=== PATIENT | female | born 1995 | race Caucasian/White ===

== ENCOUNTER 2020-09-03 15:56 | Emergency (ER) | payer OTHER ==
[2020-09-03 16:05] VITALS: BP 99/62; PULSE 78; TEMP 98.1; BMI 23.8
[2020-09-03] MEDS ORDERED: LACTATED RINGERS SOLUTION 1000 ML INFUS.BAG IV ONE ×2 (16:32→18:39)
[2020-09-03 18:09] LABS: BASO % 0.3 % (0-2.0); EOS % 1.8 % (0-4.5); HEMATOCRIT 33.2 % (32.4-45.2); HEMOGLOBIN 11.2 GM/dL (10.7-15.3); MCH 29.5 pg (25.7-33.7); MCHC 33.7 g/dl (32.0-36.0); MEAN CELL VOLUME 87.5 fl (80-96); MEAN PLT VOLUME 7.3 fl (7.5-11.1); MONO % 5.2 % (3.8-10.2); NEUT % 76.7 % (42.8-82.8); PLATELET COUNT 263 K/MM3 (134-434); RBC 3.79 M/mm3 (3.60-5.2); RDW 13.2 % (11.6-15.6)
[2020-09-03 18:15] LABS: EPI CELLS 8 /uL (0-25.1); HYALINE CASTS 0 /uL (0-3.1); URINE APPEARANCE CLEAR; URINE BACTERIA 214 /uL (0-1359); URINE BILIRUBIN NEGATIVE (NEGATIVE); URINE COLOR YELLOW; URINE GLUCOSE (UA) NEGATIVE (NEGATIVE); URINE KETONE 1+ (NEGATIVE); URINE LEUK ESTERASE NEGATIVE (NEGATIVE); URINE NITRITE NEGATIVE (NEGATIVE); URINE PROTEIN NEGATIVE (NEGATIVE); URINE RBC 2 /uL (0-23.9); URINE UROBILINOGEN 0.2 mg/dL (0.2-1.0); URINE WBC 5 /uL (0-25.8)
[2020-09-03 18:28] LABS: CALCIUM 9.4 mg/dL (8.5-10.1)
[2020-09-03 18:29] LABS: ALBUMIN 3.5 g/dl (3.4-5.0)
[2020-09-03 18:32] LABS: CREATININE 0.3 mg/dL (0.55-1.3)
[2020-09-03 18:33] LABS: BILIRUBIN,TOTAL 0.5 mg/dL (0.2-1)
[2020-09-03 18:34] LABS: TOT PROT 7.1 g/dl (6.4-8.2)
[2020-09-03 18:36] LABS: BLOOD UREA NITROGEN 6.3 mg/dL (7-18)
[2020-09-03] MEDS ORDERED: NITROFURANTOIN MACROCRYSTAL 50 MG CAPSULE (FP) ONE (19:02)
[2020-09-03] MEDS ORDERED: NITROFURANTOIN MACROCRYSTAL 50 MG CAPSULE (FP) PO SCH (19:15)
== END 2020-09-03 19:51 | disposition home or self-care (01) ==
LOC: JER 15:56
DX: O23.42 Unspecified infection of urinary tract in pregnancy, second trimester (principal); Z3A.17 17 weeks gestation of pregnancy
CPT/HCPCS: 36415; 76705-TC; 76815; 80053; 81003; 83690; 85025; 87086; 99284-25

== ENCOUNTER 2021-02-02 08:00 | Inpatient (IN) | payer OTHER ==
[2021-02-02 08:33] VITALS: BMI 28.9
[2021-02-02] MEDS ORDERED: CITRIC ACID/SODIUM CITRATE 30 ML UNIT-DOSE CUP PO ONE (08:45)
[2021-02-02] MEDS ORDERED: ELECTROLYTE-148 SOLN 1,000 ML IV SCH (08:45)
[2021-02-02] MEDS ORDERED: morphine SULFATE (PF) 1 MG/2 ML SYRINGE ONE (10:16)
[2021-02-02] MEDS ORDERED: ONDANSETRON 4 MG/2 ML VIAL ONE (10:34)
[2021-02-02] MEDS ORDERED: OXYTOCIN 10 UNIT/ML 10ML MDV ONE (10:34)
[2021-02-02] MEDS ORDERED: ceFAZolin SODIUM 1 GM VIAL ONE (10:34)
[2021-02-02] MEDS ORDERED: ePHEDrine SULFATE 50 MG/1 ML AMPULE ONE (10:34)
[2021-02-02] MEDS ORDERED: KETOROLAC TROMETHAMINE 30 MG/1 ML VIAL ONE (10:34)
[2021-02-02] MEDS ORDERED: METHYLERGONOVINE MALEATE 0.2 MG/1 ML AMP IM PRN (11:08)
[2021-02-02] MEDS ORDERED: OXYTOCIN 20 UNITS in 0.9% NS 20 UNIT/1,000 ML INFUS.BAG IV SCH (11:15)
[2021-02-02] MEDS ORDERED: ACETAMINOPHEN INJECTION 100 ML IVPB ONE (11:20)
[2021-02-02] MEDS ORDERED: OXYTOCIN 20 UNITS in 0.9% NS 20 UNIT/1,000 ML INFUS.BAG IV ONE (11:20)
[2021-02-02] MEDS ORDERED: ONDANSETRON 4 MG/2 ML VIAL IVPUSH PRN ×2 (11:20)
[2021-02-02] MEDS ORDERED: morphine SULFATE/PF 1 MG/2 ML (2cc Syringe - QUVA) SPIN ONE (11:20)
[2021-02-02] MEDS ORDERED: ACETAMINOPHEN 1000 MG/100 ML VIAL IVPB ONE (11:22)
[2021-02-02] MEDS ORDERED: LACTATED RINGERS SOLUTION 1,000 ML IV SCH (11:30)
[2021-02-02] MEDS: FERROUS SO4 325 MG TABLET (FP) PO SCH (21:19)
[2021-02-02] MEDS: IBUPROFEN 800 MG/8 ML IJ IVPB PRN (21:19)
[2021-02-03] MEDS: IBUPROFEN 800 MG/8 ML IJ IVPB PRN (03:42)
[2021-02-03 07:29] LABS: HEMATOCRIT 26.1 % (32.4-45.2); HEMOGLOBIN 8.6 GM/dL (10.7-15.3); MCH 26.7 pg (25.7-33.7); MEAN CELL VOLUME 81.1 fl (80-96); MEAN PLT VOLUME 7.7 fl (7.5-11.1); PLATELET COUNT 302 10^3/uL (134-434); RBC 3.22 M/mm3 (3.60-5.2); RDW 16.7 % (11.6-15.6); WHITE BLOOD COUNT 13.5 K/mm3 (4.0-10.0)
[2021-02-03] MEDS: FERROUS SO4 325 MG TABLET (FP) PO SCH ×2 (09:12→21:34)
[2021-02-03] MEDS: PRENATAL VITAMINS W/ FOLIC ACID TABLET (FP) PO SCH (09:12)
[2021-02-03] MEDS: oxyCODONE HCL 5 MG TABLET PO PRN ×3 (09:15→21:35)
[2021-02-03 10:24] LABS: ANISOCYTOSIS 2+; MACROCYTOSIS 0; PLATELET ESTIMATE NORMAL
[2021-02-03] MEDS ORDERED: BISACODYL 10 MG SUPP.RECT RC PRN (11:08)
[2021-02-03] MEDS: SIMETHICONE 80 MG TAB.CHEW (FP) PO PRN ×2 (13:06→21:34)
[2021-02-03] MEDS: IBUPROFEN 600 MG TABLET (FP) PO PRN ×2 (14:46→22:38)
[2021-02-04] MEDS: SIMETHICONE 80 MG TAB.CHEW (FP) PO PRN ×4 (06:07→20:22)
[2021-02-04] MEDS: IBUPROFEN 600 MG TABLET (FP) PO PRN ×4 (06:08→20:20)
[2021-02-04] MEDS: PRENATAL VITAMINS W/ FOLIC ACID TABLET (FP) PO SCH (09:57)
[2021-02-04] MEDS: FERROUS SO4 325 MG TABLET (FP) PO SCH ×2 (09:57→21:32)
[2021-02-04 20:07] VITALS: TEMP 98.2
[2021-02-04] MEDS: ACETAMINOPHEN 325 MG TABLET (FP) PO PRN (20:21)
[2021-02-05] MEDS: ACETAMINOPHEN 325 MG TABLET (FP) PO PRN (05:50)
[2021-02-05] MEDS: PRENATAL VITAMINS W/ FOLIC ACID TABLET (FP) PO SCH (09:04)
[2021-02-05] MEDS: IBUPROFEN 600 MG TABLET (FP) PO PRN (09:05)
[2021-02-05] MEDS: SIMETHICONE 80 MG TAB.CHEW (FP) PO PRN (09:05)
[2021-02-05] MEDS: FERROUS SO4 325 MG TABLET (FP) PO SCH (09:05)
[2021-02-05 09:19] LABS: HEMATOCRIT 27.5 % (32.4-45.2); HEMOGLOBIN 9.1 GM/dL (10.7-15.3); MCH 27.2 pg (25.7-33.7); MEAN CELL VOLUME 82.4 fl (80-96); MEAN PLT VOLUME 7.5 fl (7.5-11.1); PLATELET COUNT 355 10^3/uL (134-434); RBC 3.34 M/mm3 (3.60-5.2); RDW 16.4 % (11.6-15.6); WHITE BLOOD COUNT 9.5 K/mm3 (4.0-10.0)
[2021-02-05 10:26] VITALS: BP 100/62
[2021-02-05 10:40] VITALS: PULSE 68
[2021-02-05 11:56] LABS: ANISOCYTOSIS 1+; MACROCYTOSIS 1+; PLATELET ESTIMATE NORMAL; TEAR DROP CELLS 1+
== END 2021-02-05 12:30 | disposition home or self-care (01) | DRG 540 ==
LOC: JLDR 08:00 → J3W 12:20
PROVIDERS: ADMIT Obstetrics & Gynecology; ATTEND Obstetrics & Gynecology
PROC: 10D00Z1 Extraction of Products of Conception, Low, Open Approach (ICD-10-PCS; principal; 2021-02-02)
DX: O34.219 Maternal care for unspecified type scar from previous cesarean delivery (principal); Z3A.39 39 weeks gestation of pregnancy; Z37.0 Single live birth
CPT/HCPCS: 36415; 85025; 86780; 88307-TC; J0131

== ENCOUNTER 2021-03-11 15:22 | Emergency (ER) | payer OTHER ==
[2021-03-11 15:55] VITALS: BP 97/61; PULSE 71; TEMP 97.6; BMI 23.8
== END 2021-03-11 17:17 | disposition home or self-care (01) ==
LOC: JERFT 15:22 → JER 15:22 → JERFT 17:17
DX: N61.0 Mastitis without abscess (principal)
CPT/HCPCS: 99281-25

== ENCOUNTER 2022-02-09 09:43 | Emergency (ER) | payer OTHER ==
[2022-02-09 10:17] VITALS: BP 107/59; PULSE 97; RESP 20; TEMP 99.3; BMI 23.0
[2022-02-09 11:15] LABS: THROAT:GRP A STREP NOT DETECTED (NOTDETECTED)
== END 2022-02-09 11:45 | disposition home or self-care (01) ==
LOC: JER 09:43
DX: K08.89 Other specified disorders of teeth and supporting structures (principal); K12.0 Recurrent oral aphthae
CPT/HCPCS: 0241U-QW; 87651; 99283-25